=== PATIENT | male | born 1950 | race Hispanic/Latino ===

== ENCOUNTER 2020-03-11 08:37 | Emergency (ER) | payer MEDICARE ==
[~2020-03-11] VITALS: Ht 177.8 cm; Wt 111.1 kg
[~2020-03-11 08:37] MED LIST: BYSTOLIC10 MG PO; DIOVAN HCT 3201 EAC1; DIOVAN PO; FERROUS SULFAT325 MG; FUROSEMIDE PO; HYDROCHLOROTHIA25 MG PO; IRON PO; POTASSIUM PO
[2020-03-11 10:12] LABS: BASOPHILS % 0.9 % (0.0-1.0); EOSINOPHILS # (AUTO) 0.1 (0.0-0.4); EOSINOPHILS % 1.5 % (0.0-6.0); HEMATOCRIT 30.7 % (38.2-49.6); HEMOGLOBIN 10.7 g/dL (14.0-18.0); LYMPHOCYTES # (AUTO) 0.5 (1.0-3.2); LYMPHOCYTES % 11.9 % (18.0-39.1); MEAN CORPUSCULAR HEMOGLOBIN 33.9 pg (28-32); MEAN CORPUSCULAR HGB CONC 34.9 g/dL (31-35); MEAN CORPUSCULAR VOLUME 97.2 fL (81-99); MONOCYTES # (AUTO) 0.4 (0.2-0.8); MONOCYTES % 8.1 % (4.4-11.3); NEUTROPHILS # (AUTO) 3.5 (2.1-6.9); NEUTROPHILS % 77.4 % (38.7-80.0); PLATELET COUNT 154 x10e3/uL (140-360); RED BLOOD COUNT 3.16 x10e6/uL (4.3-5.7); RED CELL DISTRIBUTION WIDTH 13.8 % (11.7-14.4)
[2020-03-11 10:25] LABS: INR 0.91; PROTHROMBIN TIME 12.7 seconds (11.9-14.5)
[2020-03-11 10:26] LABS: PARTIAL THROMBOPLASTIN TIME 29.3 seconds (23.8-35.5)
[2020-03-11 10:53] LABS: ALANINE AMINOTRANSFERASE 37 IU/L (0-55); ALBUMIN 3.3 g/dL (3.5-5.0); ALBUMIN/GLOBULIN RATIO 0.9 (0.8-2.0); ALKALINE PHOSPHATASE 86 IU/L (40-150); ANION GAP 18.5 mmol/L (8-16); BLOOD UREA NITROGEN 16 mg/dL (7-26); BUN/CREATININE RATIO 14 (6-25); CALCIUM 8.2 mg/dL (8.4-10.2); CARBON DIOXIDE 21 mmol/L (22-29); CHLORIDE 91 mmol/L (98-107); CREATINE KINASE 83 IU/L (30-200); CREATININE, SERUM 1.13 mg/dL (0.72-1.25); EST GLOMERULAR FILTRATION RATE > 60 ML/MIN (60-); GLUCOSE 114 mg/dL (74-118); MAGNESIUM 1.5 MG/DL (1.3-2.1); POTASSIUM 4.5 mmol/L (3.5-5.1); SODIUM 126 mmol/L (136-145)
== END 2020-03-11 12:45 | disposition home or self-care (01) ==
LOC: ER 08:58
DX: I89.0 Lymphedema, not elsewhere classified (principal); M79.605 Pain in left leg; M79.604 Pain in right leg; E87.1 Hypo-osmolality and hyponatremia; R94.31 Abnormal electrocardiogram [ECG] [EKG]; I10 Essential (primary) hypertension; I50.9 Heart failure, unspecified
CPT/HCPCS: 36415; 71045; 80053; 82550; 82553; 83735; 83880; 84484; 85025; 85610; 85730; 93005; 99284

== ENCOUNTER 2021-01-04 09:29 | Inpatient (IN) | payer MEDICARE, OTHER ==
[~2021-01-04] VITALS: Ht 177.8 cm; Wt 111.1 kg
[2021-01-04] MEDS ORDERED: HYDROCHLOROTHIA50 MG (09:52)
[2021-01-04] MEDS ORDERED: LOSARTAN POTAS100 MG (09:52)
[2021-01-04 10:13] LABS: BASOPHILS % 0.1 % (0.0-1.0); EOSINOPHILS % 0.3 % (0.0-6.0); HEMATOCRIT 32.4 % (38.2-49.6); HEMOGLOBIN 10.8 g/dL (14.0-18.0); LYMPHOCYTES # (AUTO) 0.6 (1.0-3.2); LYMPHOCYTES % 7.6 % (18.0-39.1); MEAN CORPUSCULAR HEMOGLOBIN 28.3 pg (28-32); MEAN CORPUSCULAR HGB CONC 33.3 g/dL (31-35); MONOCYTES # (AUTO) 0.7 (0.2-0.8); MONOCYTES % 8.7 % (4.4-11.3); NEUTROPHILS # (AUTO) 6.3 (2.1-6.9); NEUTROPHILS % 82.9 % (38.7-80.0); PLATELET COUNT 225 x10e3/uL (140-360); RED BLOOD COUNT 3.81 x10e6/uL (4.3-5.7); RED CELL DISTRIBUTION WIDTH 14.9 % (11.7-14.4)
[2021-01-04 10:24] LABS: INR 1.03; PROTHROMBIN TIME 13.9 seconds (11.9-14.5)
[2021-01-04 10:25] LABS: PARTIAL THROMBOPLASTIN TIME 32.3 seconds (23.8-35.5)
[2021-01-04 10:40] LABS: ALBUMIN 3.2 g/dL (3.5-5.0); ALBUMIN/GLOBULIN RATIO 0.6 (0.8-2.0); ANION GAP 17.2 mmol/L (8-16); CALCIUM 8.4 mg/dL (8.4-10.2); CREATININE, SERUM 0.9 mg/dL (0.72-1.25); POTASSIUM 5.2 mmol/L (3.5-5.1)
[2021-01-04 11:29] LABS: CLARITY,URINE CLEAR (CLEAR); COLOR,URINE YELLOW (YELLOW); KETONES,URINE 2+ (NEGATIVE); LEUKOCYTE ESTERASE ,URINE NEGATIVE (NEGATIVE); NITRITE,URINE NEGATIVE (NEGATIVE); PROTEIN,URINE DIPSTICK NEGATIVE (NEGATIVE); URINE UROBILINOGEN 0.2 mg/dL (0.2 - 1)
[2021-01-04 11:42] LABS: RBC,URINE 0-5 /HPF (0-5); WBC,URINE (MAN) 0-5 /HPF (0-5)
[2021-01-04 11:43] LABS: BACTERIA,URINE RARE /HPF; EPITHELIAL CELLS,URINE RARE /LPF
[2021-01-04] MEDS ORDERED: LORAZEPAM INJ 2 MG/ML VIAL IV PRN (12:45)
[2021-01-04] MEDS ORDERED: MULTIVITAMINS- 12 INJECTION 10 ML, FOLIC ACID MDV 1 MG, THIAMINE HCL INJ 100 MG in SODI... IV ONE (12:45)
[2021-01-04] MEDS: THIAMINE HCL 100 MG TAB PO SCH (13:23)
[2021-01-04 13:27] LABS: BLOOD UREA NITROGEN 11 mg/dL (7-26); GLUCOSE 120 mg/dL (74-118); OSMOLALITY,SERUM 245 mOsm/kg (278-305); SODIUM 121 mmol/L (136-145)
[2021-01-04] MEDS: CHLORDIAZEPOXIDE HCL 25 MG CAP PO SCH ×2 (14:00→16:31)
[2021-01-04 14:55] LABS: ANION GAP 13.2 mmol/L (8-16); CALCIUM 8.2 mg/dL (8.4-10.2); POTASSIUM 4.2 mmol/L (3.5-5.1)
[2021-01-04 15:07] LABS: CREATININE, SERUM 0.82 mg/dL (0.72-1.25)
[2021-01-04 15:50] VITALS: BP 145/101
[2021-01-04 16:00] VITALS: BP 145/101
[2021-01-04] MEDS ORDERED: METOPROLOL SUCC50 MG PO (16:00)
[2021-01-04 20:00] VITALS: BP 138/58
[2021-01-04 20:19] VITALS: BP 138/58
[2021-01-04] MEDS ORDERED: LABETALOL HCL 5 MG/ML 20ML VIAL IV ONE (23:45)
[2021-01-05] VITALS (11 sets, daily range): BP systolic 147–209; BP diastolic 69–99
[2021-01-05] MEDS: LABETALOL HCL 5 MG/ML 20ML VIAL IV PRN ×2 (04:18→06:18)
[2021-01-05] MEDS: CHLORDIAZEPOXIDE HCL 25 MG CAP PO SCH ×3 (05:26→22:00)
[2021-01-05 06:00] LABS: BASOPHILS % 0.4 % (0.0-1.0); EOSINOPHILS % 0.2 % (0.0-6.0); HEMATOCRIT 31.5 % (38.2-49.6); LYMPHOCYTES # (AUTO) 0.8 (1.0-3.2); LYMPHOCYTES % 16.9 % (18.0-39.1); MEAN CORPUSCULAR HEMOGLOBIN 28.5 pg (28-32); MEAN CORPUSCULAR HGB CONC 31.7 g/dL (31-35); MEAN CORPUSCULAR VOLUME 89.7 fL (81-99); MONOCYTES # (AUTO) 0.6 (0.2-0.8); MONOCYTES % 11.9 % (4.4-11.3); NEUTROPHILS # (AUTO) 3.2 (2.1-6.9); NEUTROPHILS % 70.2 % (38.7-80.0); PLATELET COUNT 192 x10e3/uL (140-360); RED BLOOD COUNT 3.51 x10e6/uL (4.3-5.7); RED CELL DISTRIBUTION WIDTH 15.6 % (11.7-14.4)
[2021-01-05 06:40] LABS: ALBUMIN 2.7 g/dL (3.5-5.0); ALBUMIN/GLOBULIN RATIO 0.7 (0.8-2.0); ANION GAP 11.3 mmol/L (8-16); CALCIUM 7.9 mg/dL (8.4-10.2); CREATININE, SERUM 0.92 mg/dL (0.72-1.25); MAGNESIUM 1.8 MG/DL (1.3-2.1); POTASSIUM 4.3 mmol/L (3.5-5.1)
[2021-01-05 07:03] LABS: FERRITIN 584.59 ng/mL (21.81-274.66)
[2021-01-05] MEDS: THIAMINE HCL 100 MG TAB PO SCH (09:00)
[2021-01-05] MEDS: METOPROLOL SUCCINATE 50 MG TAB XL PO SCH (09:00)
[2021-01-05] MEDS: CYANOCOBALAMIN 1,000 MCG TAB PO SCH (09:00)
[2021-01-05] MEDS ORDERED: SODIUM CHLORIDE 0.9% 1000ML 1,000 ML IV PRN (10:30)
[2021-01-05] MEDS ORDERED: SODIUM CHLORIDE 0.9% 1000ML 1,000 ML ONE (10:52)
[2021-01-05] MEDS ORDERED: MAGNESIUM SULFATE 2GM/50ML 50 ML IV ONE (11:00)
[2021-01-05] MEDS: LOSARTAN POTASSIUM 100 MG TAB PO SCH (12:00)
[2021-01-05 12:30] LABS: ANION GAP 10.8 mmol/L (8-16); CALCIUM 7.9 mg/dL (8.4-10.2); CREATININE, SERUM 0.87 mg/dL (0.72-1.25); POTASSIUM 3.8 mmol/L (3.5-5.1)
[2021-01-05] MEDS: MULTIVITAMINS- 12 INJECTION 10 ML, FOLIC ACID MDV 1 MG, THIAMINE HCL INJ 100 MG in SODI... IV SCH (13:24)
[2021-01-05] MEDS: SODIUM CHLORIDE 1 GM TAB PO SCH ×2 (16:00→21:00)
[2021-01-05 21:09] LABS: ANION GAP 11.2 mmol/L (8-16); CALCIUM 7.8 mg/dL (8.4-10.2); CREATININE, SERUM 1.01 mg/dL (0.72-1.25); POTASSIUM 4.2 mmol/L (3.5-5.1)
[2021-01-06] VITALS (8 sets, daily range): BP systolic 139–177; BP diastolic 67–88
[2021-01-06 06:00] LABS: ALBUMIN 2.7 g/dL (3.5-5.0); ALBUMIN/GLOBULIN RATIO 0.6 (0.8-2.0); ANION GAP 13.4 mmol/L (8-16); CALCIUM 8.2 mg/dL (8.4-10.2); CREATININE, SERUM 0.95 mg/dL (0.72-1.25); POTASSIUM 4.4 mmol/L (3.5-5.1)
[2021-01-06] MEDS: CHLORDIAZEPOXIDE HCL 25 MG CAP PO SCH ×2 (06:30→21:00)
[2021-01-06] MEDS: THIAMINE HCL 100 MG TAB PO SCH (09:00)
[2021-01-06] MEDS: LOSARTAN POTASSIUM 100 MG TAB PO SCH (10:00)
[2021-01-06] MEDS: CYANOCOBALAMIN 1,000 MCG TAB PO SCH (10:00)
[2021-01-06] MEDS: METOPROLOL SUCCINATE 50 MG TAB XL PO SCH (10:00)
[2021-01-06] MEDS: SODIUM CHLORIDE 1 GM TAB PO SCH ×3 (10:00→21:00)
[2021-01-06] MEDS ORDERED: HYDRALAZINE HCL 20 MG/ML VIAL IV PRN (12:00)
[2021-01-06 12:37] LABS: ANION GAP 13.8 mmol/L (8-16); CALCIUM 7.9 mg/dL (8.4-10.2); CREATININE, SERUM 0.85 mg/dL (0.72-1.25); POTASSIUM 4.8 mmol/L (3.5-5.1)
[2021-01-06] MEDS: MULTIVITAMINS- 12 INJECTION 10 ML, FOLIC ACID MDV 1 MG, THIAMINE HCL INJ 100 MG in SODI... IV SCH (12:47)
[2021-01-06] MEDS: AMLODIPINE BESYLATE 5 MG TAB PO SCH (13:00)
[2021-01-06] MEDS: ACETAMINOPHEN 325 MG TAB PO PRN (18:30)
[2021-01-07] VITALS (7 sets, daily range): BP systolic 139–183; BP diastolic 72–92
[2021-01-07 05:04] LABS: BASOPHILS % 0.9 % (0.0-1.0); EOSINOPHILS # (AUTO) 0.1 (0.0-0.4); EOSINOPHILS % 2.5 % (0.0-6.0); HEMATOCRIT 29.6 % (38.2-49.6); HEMOGLOBIN 9.5 g/dL (14.0-18.0); LYMPHOCYTES # (AUTO) 0.9 (1.0-3.2); LYMPHOCYTES % 19.6 % (18.0-39.1); MEAN CORPUSCULAR HEMOGLOBIN 28.4 pg (28-32); MEAN CORPUSCULAR HGB CONC 32.1 g/dL (31-35); MEAN CORPUSCULAR VOLUME 88.6 fL (81-99); MONOCYTES # (AUTO) 0.5 (0.2-0.8); MONOCYTES % 12.1 % (4.4-11.3); NEUTROPHILS # (AUTO) 2.8 (2.1-6.9); NEUTROPHILS % 64.4 % (38.7-80.0); PLATELET COUNT 213 x10e3/uL (140-360); RED BLOOD COUNT 3.34 x10e6/uL (4.3-5.7); RED CELL DISTRIBUTION WIDTH 15.8 % (11.7-14.4)
[2021-01-07 06:38] LABS: ALBUMIN 2.4 g/dL (3.5-5.0); ALBUMIN/GLOBULIN RATIO 0.6 (0.8-2.0); ANION GAP 13.3 mmol/L (8-16); CALCIUM 7.6 mg/dL (8.4-10.2); CREATININE, SERUM 0.82 mg/dL (0.72-1.25); MAGNESIUM 1.8 MG/DL (1.3-2.1); PHOSPHORUS 3.5 MG/DL (2.3-4.7); POTASSIUM 4.3 mmol/L (3.5-5.1)
[2021-01-07] MEDS: SODIUM CHLORIDE 1 GM TAB PO SCH ×3 (09:23→21:39)
[2021-01-07] MEDS: LOSARTAN POTASSIUM 100 MG TAB PO SCH (09:27)
[2021-01-07] MEDS: AMLODIPINE BESYLATE 5 MG TAB PO SCH (09:27)
[2021-01-07] MEDS: CHLORDIAZEPOXIDE HCL 25 MG CAP PO SCH ×2 (09:27→21:39)
[2021-01-07] MEDS: AMLODIPINE BESYLATE 10 MG TAB PO SCH (09:28)
[2021-01-07] MEDS: THIAMINE HCL 100 MG TAB PO SCH (09:28)
[2021-01-07] MEDS: CYANOCOBALAMIN 1,000 MCG TAB PO SCH (09:28)
[2021-01-07] MEDS: METOPROLOL SUCCINATE 50 MG TAB XL PO SCH (09:29)
[2021-01-07] MEDS: GUAIFENESIN/DEXTROMETHORPHAN LIQD 5 ML UDC NG PRN ×3 (13:09→22:14)
[2021-01-07] MEDS: MULTIVITAMINS- 12 INJECTION 10 ML, FOLIC ACID MDV 1 MG, THIAMINE HCL INJ 100 MG in SODI... IV SCH (15:17)
[2021-01-07] MEDS: ACETAMINOPHEN 325 MG TAB PO PRN (16:10)
[2021-01-08] VITALS (7 sets, daily range): BP systolic 134–172; BP diastolic 63–93
[2021-01-08 05:56] LABS: ALBUMIN 2.3 g/dL (3.5-5.0); ALBUMIN/GLOBULIN RATIO 0.6 (0.8-2.0); ANION GAP 12.2 mmol/L (8-16); CALCIUM 7.8 mg/dL (8.4-10.2); CREATININE, SERUM 0.79 mg/dL (0.72-1.25); POTASSIUM 4.2 mmol/L (3.5-5.1)
[2021-01-08] MEDS: CHLORDIAZEPOXIDE HCL 25 MG CAP PO SCH ×2 (09:03→21:35)
[2021-01-08] MEDS: LOSARTAN POTASSIUM 100 MG TAB PO SCH (09:03)
[2021-01-08] MEDS: AMLODIPINE BESYLATE 10 MG TAB PO SCH (09:04)
[2021-01-08] MEDS: METOPROLOL SUCCINATE 50 MG TAB XL PO SCH (09:06)
[2021-01-08] MEDS: CYANOCOBALAMIN 1,000 MCG TAB PO SCH (09:06)
[2021-01-08] MEDS: THIAMINE HCL 100 MG TAB PO SCH (09:07)
[2021-01-08] MEDS: SODIUM CHLORIDE 1 GM TAB PO SCH ×3 (09:07→21:35)
[2021-01-08] MEDS: AMLODIPINE BESYLATE 5 MG TAB PO SCH (09:07)
[2021-01-08] MEDS: MULTIVITAMINS- 12 INJECTION 10 ML, FOLIC ACID MDV 1 MG, THIAMINE HCL INJ 100 MG in SODI... IV SCH (11:09)
[2021-01-08] MEDS: GUAIFENESIN/DEXTROMETHORPHAN LIQD 5 ML UDC NG PRN (14:36)
[2021-01-09] VITALS (10 sets, daily range): BP systolic 143–174; BP diastolic 72–90
[2021-01-09 07:04] LABS: ANION GAP 13.3 mmol/L (8-16); CALCIUM 8.1 mg/dL (8.4-10.2); CREATININE, SERUM 0.77 mg/dL (0.72-1.25); POTASSIUM 4.3 mmol/L (3.5-5.1)
[2021-01-09] MEDS: LOSARTAN POTASSIUM 100 MG TAB PO SCH (08:54)
[2021-01-09] MEDS: FUROSEMIDE 20 MG TAB PO SCH (08:55)
[2021-01-09] MEDS: CHLORDIAZEPOXIDE HCL 25 MG CAP PO SCH (08:55)
[2021-01-09] MEDS: SODIUM CHLORIDE 1 GM TAB PO SCH ×3 (08:56→20:30)
[2021-01-09] MEDS: AMLODIPINE BESYLATE 10 MG TAB PO SCH (08:56)
[2021-01-09] MEDS: AMLODIPINE BESYLATE 5 MG TAB PO SCH (08:56)
[2021-01-09] MEDS: THIAMINE HCL 100 MG TAB PO SCH (08:56)
[2021-01-09] MEDS: METOPROLOL SUCCINATE 50 MG TAB XL PO SCH (08:57)
[2021-01-09] MEDS: CYANOCOBALAMIN 1,000 MCG TAB PO SCH (08:57)
[2021-01-09] MEDS: GUAIFENESIN/DEXTROMETHORPHAN LIQD 5 ML UDC NG PRN (10:28)
[2021-01-09] MEDS: FERROUS SULFATE 325 MG TAB PO SCH (10:28)
[2021-01-09] MEDS: POLYETHYLENE GLYCOL 3350 17 GM PACK PO SCH (11:01)
[2021-01-09] MEDS: ACETAMINOPHEN 325 MG TAB PO PRN (22:00)
[2021-01-10] VITALS (7 sets, daily range): BP systolic 137–152; BP diastolic 65–84
[2021-01-10 06:08] LABS: CREATININE, SERUM 0.75 mg/dL (0.72-1.25)
[2021-01-10] MEDS: FERROUS SULFATE 325 MG TAB PO SCH (08:40)
[2021-01-10] MEDS: FUROSEMIDE 20 MG TAB PO SCH (08:40)
[2021-01-10] MEDS: LOSARTAN POTASSIUM 100 MG TAB PO SCH (08:40)
[2021-01-10] MEDS: SODIUM CHLORIDE 1 GM TAB PO SCH ×3 (08:41→20:41)
[2021-01-10] MEDS: METOPROLOL SUCCINATE 50 MG TAB XL PO SCH (08:41)
[2021-01-10] MEDS: AMLODIPINE BESYLATE 10 MG TAB PO SCH (08:41)
[2021-01-10] MEDS: THIAMINE HCL 100 MG TAB PO SCH (08:41)
[2021-01-10] MEDS: AMLODIPINE BESYLATE 5 MG TAB PO SCH (08:41)
[2021-01-10] MEDS: CYANOCOBALAMIN 1,000 MCG TAB PO SCH (08:41)
[2021-01-10] MEDS: POLYETHYLENE GLYCOL 3350 17 GM PACK PO SCH (08:48)
[2021-01-10] MEDS ORDERED: CHLORDIAZEPOXIDE HCL 25 MG CAP PO SCH (09:00)
[2021-01-10] MEDS: ACETAMINOPHEN 325 MG TAB PO PRN ×2 (13:05→22:50)
[2021-01-10] MEDS ORDERED: BISACODYL 10 MG SUPP PR ONE (17:10)
[2021-01-10] MEDS: ESCITALOPRAM OXALATE 10 MG TAB PO SCH (17:18)
[2021-01-11] VITALS: BP 151/74
[2021-01-11 05:21] VITALS: BP 152/71
[2021-01-11 06:05] LABS: CALCIUM 7.9 mg/dL (8.4-10.2); CREATININE, SERUM 0.79 mg/dL (0.72-1.25)
[2021-01-11 07:17] VITALS: BP 158/74
[2021-01-11 07:36] VITALS: BP 158/74
[2021-01-11] MEDS ORDERED: CHLORDIAZEPOXIDE HCL 10 MG CAP PO SCH (09:00)
[2021-01-11] MEDS: LOSARTAN POTASSIUM 100 MG TAB PO SCH (09:07)
[2021-01-11] MEDS: FERROUS SULFATE 325 MG TAB PO SCH (09:07)
[2021-01-11] MEDS: ESCITALOPRAM OXALATE 10 MG TAB PO SCH (09:07)
[2021-01-11] MEDS: FUROSEMIDE 20 MG TAB PO SCH (09:07)
[2021-01-11] MEDS: POLYETHYLENE GLYCOL 3350 17 GM PACK PO SCH (09:08)
[2021-01-11] MEDS: AMLODIPINE BESYLATE 10 MG TAB PO SCH (09:08)
[2021-01-11] MEDS: THIAMINE HCL 100 MG TAB PO SCH (09:08)
[2021-01-11] MEDS: SODIUM CHLORIDE 1 GM TAB PO SCH ×3 (09:08→20:49)
[2021-01-11] MEDS: AMLODIPINE BESYLATE 5 MG TAB PO SCH (09:08)
[2021-01-11] MEDS: METOPROLOL SUCCINATE 50 MG TAB XL PO SCH (09:09)
[2021-01-11] MEDS: CYANOCOBALAMIN 1,000 MCG TAB PO SCH (09:09)
[2021-01-11 11:04] VITALS: BP 129/82
[2021-01-11 15:36] VITALS: BP 146/68
[2021-01-11] MEDS ORDERED: VITAMIN B-121000 MCG PO (17:07)
[2021-01-11] MEDS ORDERED: Ferrous Sulfate PO (17:07)
[2021-01-11] MEDS ORDERED: CHLORDIAZEPOXID10 MG PO (17:07)
[2021-01-11] MEDS ORDERED: NORVASC10 MG PO (17:07)
[2021-01-11] MEDS ORDERED: MIRALAX17 GM PO (17:07)
[2021-01-11] MEDS ORDERED: FUROSEMIDE20 MG PO (17:07)
[2021-01-11] MEDS ORDERED: LEXAPRO10 MG PO (17:07)
[2021-01-11] MEDS ORDERED: HYTRIN1 M1 PO (17:07)
[2021-01-11] MEDS ORDERED: B-1100 MG PO (17:07)
[2021-01-11] MEDS ORDERED: TERAZOSIN HCL 1 MG CAP PO SCH (21:00)
== END 2021-01-11 20:57 | DRG 897 ==
LOC: ER 09:36 → ERHOLD 12:51 → MED/SURG 15:31
PROVIDERS: ADMIT Internal Medicine; ATTEND Internal Medicine
DX: F10.288 Alcohol dependence with other alcohol-induced disorder (principal); E22.2 Syndrome of inappropriate secretion of antidiuretic hormone; I42.6 Alcoholic cardiomyopathy; E87.2 Acidosis; Z91.81 History of falling; I89.0 Lymphedema, not elsewhere classified; E66.9 Obesity, unspecified; Z68.35 Body mass index [BMI] 35.0-35.9, adult; L85.9 Epidermal thickening, unspecified; I87.2 Venous insufficiency (chronic) (peripheral); I11.0 Hypertensive heart disease with heart failure; I50.9 Heart failure, unspecified; Z20.822 Contact with and (suspected) exposure to COVID-19
CPT/HCPCS: 36415; 70450; 71045; 71046; 80048; 80053; 81001; 82607; 82728; 82746; 82947; 82948; 83540; 83735; 83880; 83935; 84100; 84295; 84300; 84466; 84520; 84550; 85025; 85610; 85730; 87040; 93005; 96361; 97139; 99251; 99284; J0360; J2060; J3411; J3475; J7030; U0002

== ENCOUNTER 2021-09-04 11:47 | Inpatient (IN) | payer MEDICARE ==
[~2021-09-04] VITALS: Ht 177.8 cm; Wt 111.1 kg
[~2021-09-04 11:47] MED LIST changes: +B-1100 MG PO; +CHLORDIAZEPOXID10 MG PO; +FUROSEMIDE20 MG PO; +Ferrous Sulfate PO; +HYDROCHLOROTHIA50 MG; +HYTRIN1 M1 PO; +LEXAPRO10 MG PO; +LOSARTAN POTAS100 MG; +METOPROLOL SUCC50 MG PO; +MIRALAX17 GM PO; +NORVASC10 MG PO; +VITAMIN B-121000 MCG PO
[2021-09-04] MEDS ORDERED: Vancomycin IV 1 GM in SODIUM CHLORIDE 0.9% 250ML 250 ML IV ONE (12:30)
[2021-09-04] MEDS ORDERED: SODIUM CHLORIDE 0.9% 500ML 500 ML IV ONE ×2 (12:30→14:15)
[2021-09-04 12:39] LABS: BASOPHILS % 0.6 % (0.0-1.0); EOSINOPHILS % 0.2 % (0.0-6.0); HEMATOCRIT 38.1 % (38.2-49.6); HEMOGLOBIN 13.1 g/dL (14.0-18.0); LYMPHOCYTES # (AUTO) 0.7 (1.0-3.2); LYMPHOCYTES % 10.5 % (18.0-39.1); MEAN CORPUSCULAR HEMOGLOBIN 31.4 pg (28-32); MEAN CORPUSCULAR HGB CONC 34.4 g/dL (31-35); MEAN CORPUSCULAR VOLUME 91.4 fL (81-99); MONOCYTES # (AUTO) 0.3 (0.2-0.8); MONOCYTES % 5.4 % (4.4-11.3); NEUTROPHILS # (AUTO) 5.2 (2.1-6.9); NEUTROPHILS % 82.7 % (38.7-80.0); PLATELET COUNT 195 x10e3/uL (140-360); RED BLOOD COUNT 4.17 x10e6/uL (4.3-5.7); RED CELL DISTRIBUTION WIDTH 13.9 % (11.7-14.4)
[2021-09-04 12:45] LABS: INR 0.93; PARTIAL THROMBOPLASTIN TIME 28.1 seconds (23.8-35.5); PROTHROMBIN TIME 13.3 seconds (11.9-14.5)
[2021-09-04 12:55] LABS: ALANINE AMINOTRANSFERASE 17 IU/L (0-55); ALBUMIN 3.2 g/dL (3.5-5.0); ALBUMIN/GLOBULIN RATIO 0.6 (0.8-2.0); ALKALINE PHOSPHATASE 71 IU/L (40-150); ANION GAP 17.6 mmol/L (8-16); BLOOD UREA NITROGEN 7 mg/dL (7-26); BUN/CREATININE RATIO 7 (6-25); CALCIUM 8.3 mg/dL (8.4-10.2); CARBON DIOXIDE 18 mmol/L (22-29); CHLORIDE 86 mmol/L (98-107); CREATINE KINASE 121 IU/L (30-200); CREATININE, SERUM 1.01 mg/dL (0.72-1.25); GLUCOSE 113 mg/dL (74-118); MAGNESIUM 1.7 MG/DL (1.3-2.1); POTASSIUM 4.6 mmol/L (3.5-5.1)
[2021-09-04 12:56] LABS: SODIUM 117 mmol/L (136-145)
[2021-09-04 13:34] LABS: CLARITY,URINE CLEAR (CLEAR); COLOR,URINE STRAW (YELLOW); KETONES,URINE 1+ (NEGATIVE); LEUKOCYTE ESTERASE ,URINE NEGATIVE (NEGATIVE); NITRITE,URINE NEGATIVE (NEGATIVE); PROTEIN,URINE DIPSTICK NEGATIVE (NEGATIVE); URINE UROBILINOGEN 0.2 mg/dL (0.2 - 1)
[2021-09-04 13:44] LABS: AMORPHOUS SEDIMENT,URINE FEW (FEW); HYALINE CASTS 0-1 (0-1); WBC,URINE (MAN) 0-5 /HPF (0-5)
[2021-09-04] MEDS ORDERED: HYDRALAZINE HCL 20 MG/ML VIAL IV ONE (14:15)
[2021-09-04] MEDS ORDERED: HYDRALAZINE HCL 20 MG/ML VIAL IV PRN (16:00)
[2021-09-04] MEDS ORDERED: ONDANSETRON HCL INJ 2MG/ML 2ML 2 MG/ML VIAL IV PRN (16:00)
[2021-09-04] MEDS ORDERED: METOPROLOL TARTRATE 25 MG TAB PO SCH (16:00)
[2021-09-04] MEDS ORDERED: HYDRALAZINE HCL 20 MG/ML VIAL IV NR (16:00)
[2021-09-04] MEDS: SODIUM CHLORIDE 1 GM TAB PO SCH ×2 (16:31→16:35)
[2021-09-04] MEDS ORDERED: MELATONIN 5 MG TABLET PO PRN (17:30)
[2021-09-04] MEDS ORDERED: ACETAMINOPHEN 325 MG TAB PO PRN (17:30)
[2021-09-04 17:35] LABS: ABG HCO3 19 mmol/L (22-26); ABG PCO2 28 mmHg (35-45); ABG PH 7.44 (7.35-7.45); ABG PO2 99 mmHg (80-105); ABG TCO2 20
[2021-09-04 18:32] VITALS: BP 121/60
[2021-09-04 18:36] LABS: ANION GAP 15.2 mmol/L (8-16); CALCIUM 8.2 mg/dL (8.4-10.2); CREATININE, SERUM 0.98 mg/dL (0.72-1.25); POTASSIUM 4.2 mmol/L (3.5-5.1)
[2021-09-04 18:41] VITALS: BP 121/60
[2021-09-04 19:03] LABS: CREATINE KINASE MB 4.1 ng/mL (0-5.0)
[2021-09-04 19:08] LABS: THYROID STIMULATING HORMONE 6.161 uIU/mL (0.350-4.940)
[2021-09-04 20:00] VITALS: BP 140/68
[2021-09-04] MEDS ORDERED: SODIUM CHLORIDE 0.9% 250ML 250 ML ONE (20:31)
[2021-09-04] MEDS: NIFEDIPINE CR 30 MG TAB PO SCH (20:52)
[2021-09-04] MEDS: LOSARTAN POTASSIUM 25 MG TAB PO SCH (20:52)
[2021-09-04] MEDS: TERAZOSIN HCL 1 MG CAP PO SCH (20:53)
[2021-09-04 23:59] LABS: CREATINE KINASE MB 3.2 ng/mL (0-5.0)
[2021-09-05] VITALS: BP 125/65
[2021-09-05 04:00] VITALS: BP 136/70
[2021-09-05 06:32] LABS: BASOPHILS % 0.4 % (0.0-1.0); HEMATOCRIT 31.4 % (38.2-49.6); HEMOGLOBIN 10.8 g/dL (14.0-18.0); LYMPHOCYTES # (AUTO) 0.7 (1.0-3.2); LYMPHOCYTES % 14.6 % (18.0-39.1); MEAN CORPUSCULAR HGB CONC 34.4 g/dL (31-35); MEAN CORPUSCULAR VOLUME 90.2 fL (81-99); MONOCYTES # (AUTO) 0.4 (0.2-0.8); MONOCYTES % 8.5 % (4.4-11.3); NEUTROPHILS # (AUTO) 3.6 (2.1-6.9); NEUTROPHILS % 76.1 % (38.7-80.0); PLATELET COUNT 164 x10e3/uL (140-360); RED BLOOD COUNT 3.48 x10e6/uL (4.3-5.7)
[2021-09-05 06:52] LABS: ALBUMIN 2.6 g/dL (3.5-5.0); ALBUMIN/GLOBULIN RATIO 0.7 (0.8-2.0); CALCIUM 7.7 mg/dL (8.4-10.2); CREATININE, SERUM 0.85 mg/dL (0.72-1.25)
[2021-09-05 07:06] LABS: CREATINE KINASE MB 2.4 ng/mL (0-5.0)
[2021-09-05 08:22] VITALS: BP 141/71
[2021-09-05] MEDS: THIAMINE HCL 100 MG TAB PO SCH (08:24)
[2021-09-05] MEDS: CYANOCOBALAMIN 1,000 MCG TAB PO SCH (08:24)
[2021-09-05] MEDS: ESCITALOPRAM OXALATE 10 MG TAB PO SCH (08:26)
[2021-09-05] MEDS: CHLORDIAZEPOXIDE HCL 10 MG CAP PO SCH (08:26)
[2021-09-05] MEDS: POLYETHYLENE GLYCOL 3350 17 GM PACK PO SCH (08:26)
[2021-09-05] MEDS: LOSARTAN POTASSIUM 25 MG TAB PO SCH (08:26)
[2021-09-05] MEDS: NIFEDIPINE CR 30 MG TAB PO SCH (08:27)
[2021-09-05] MEDS: METOPROLOL SUCCINATE 50 MG TAB XL PO SCH (08:27)
[2021-09-05 08:39] VITALS: BP 141/71
[2021-09-05] MEDS ORDERED: AMLODIPINE BESYLATE 10 MG TAB PO SCH (09:00)
[2021-09-05 12:00] VITALS: BP 117/64
[2021-09-05 16:06] VITALS: BP 127/60
[2021-09-05] MEDS: SODIUM CHLORIDE 1 GM TAB PO SCH ×2 (17:13→21:23)
[2021-09-05] MEDS: TERAZOSIN HCL 1 MG CAP PO SCH (21:23)
[2021-09-06] VITALS (9 sets, daily range): BP systolic 121–151; BP diastolic 61–70
[2021-09-06 06:57] LABS: ANION GAP 9.8 mmol/L (8-16); CALCIUM 7.9 mg/dL (8.4-10.2); CREATININE, SERUM 0.82 mg/dL (0.72-1.25); POTASSIUM 3.8 mmol/L (3.5-5.1)
[2021-09-06] MEDS: BALSAM PERU/CASTOR OIL 60 GM OINT...G. TP SCH (09:00)
[2021-09-06] MEDS: POLYETHYLENE GLYCOL 3350 17 GM PACK PO SCH (09:00)
[2021-09-06] MEDS: CYANOCOBALAMIN 1,000 MCG TAB PO SCH (09:46)
[2021-09-06] MEDS: NIFEDIPINE CR 30 MG TAB PO SCH (09:46)
[2021-09-06] MEDS: THIAMINE HCL 100 MG TAB PO SCH (09:47)
[2021-09-06] MEDS: LOSARTAN POTASSIUM 25 MG TAB PO SCH (09:47)
[2021-09-06] MEDS: METOPROLOL SUCCINATE 50 MG TAB XL PO SCH (09:47)
[2021-09-06] MEDS: CHLORDIAZEPOXIDE HCL 10 MG CAP PO SCH (09:47)
[2021-09-06] MEDS: ESCITALOPRAM OXALATE 10 MG TAB PO SCH (09:47)
[2021-09-06] MEDS: SODIUM CHLORIDE 1 GM TAB PO SCH ×3 (09:52→20:44)
[2021-09-06 16:10] LABS: OSMOLALITY,SERUM OSMOMETER 257 mOsmol/kg (280-301)
[2021-09-06] MEDS: SODIUM HYPOCHLORITE 0.5% 480 ML BTL TOP SCH (18:27)
[2021-09-06] MEDS: TERAZOSIN HCL 1 MG CAP PO SCH (20:44)
[2021-09-07] VITALS (8 sets, daily range): BP systolic 140–168; BP diastolic 66–82
[2021-09-07] MEDS: LEVOTHYROXINE SODIUM 25 MCG TABLET PO SCH (05:38)
[2021-09-07 07:27] LABS: CREATININE, SERUM 0.91 mg/dL (0.72-1.25)
[2021-09-07] MEDS: POLYETHYLENE GLYCOL 3350 17 GM PACK PO SCH (09:15)
[2021-09-07] MEDS: NIFEDIPINE CR 30 MG TAB PO SCH (09:16)
[2021-09-07] MEDS: CYANOCOBALAMIN 1,000 MCG TAB PO SCH (09:16)
[2021-09-07] MEDS: THIAMINE HCL 100 MG TAB PO SCH (09:16)
[2021-09-07] MEDS: METOPROLOL SUCCINATE 50 MG TAB XL PO SCH (09:17)
[2021-09-07] MEDS: LOSARTAN POTASSIUM 25 MG TAB PO SCH (09:17)
[2021-09-07] MEDS: ESCITALOPRAM OXALATE 10 MG TAB PO SCH (09:18)
[2021-09-07] MEDS: CHLORDIAZEPOXIDE HCL 10 MG CAP PO SCH (09:18)
[2021-09-07] MEDS: SODIUM CHLORIDE 1 GM TAB PO SCH ×3 (09:18→20:57)
[2021-09-07] MEDS: SODIUM HYPOCHLORITE 0.5% 480 ML BTL TOP SCH (09:21)
[2021-09-07] MEDS: BALSAM PERU/CASTOR OIL 60 GM OINT...G. TP SCH (09:21)
[2021-09-07] MEDS: TERAZOSIN HCL 1 MG CAP PO SCH (20:56)
[2021-09-08] VITALS: BP 123/50
[2021-09-08 04:00] VITALS: BP 154/78
[2021-09-08] MEDS: LEVOTHYROXINE SODIUM 25 MCG TABLET PO SCH (05:37)
[2021-09-08 07:23] LABS: ANION GAP 12.1 mmol/L (8-16); CALCIUM 7.8 mg/dL (8.4-10.2); CREATININE, SERUM 0.86 mg/dL (0.72-1.25); POTASSIUM 4.1 mmol/L (3.5-5.1)
[2021-09-08 08:15] VITALS: BP 166/71
[2021-09-08] MEDS: ESCITALOPRAM OXALATE 10 MG TAB PO SCH (08:51)
[2021-09-08] MEDS: LOSARTAN POTASSIUM 25 MG TAB PO SCH (08:52)
[2021-09-08] MEDS: POLYETHYLENE GLYCOL 3350 17 GM PACK PO SCH (08:54)
[2021-09-08] MEDS: NIFEDIPINE CR 30 MG TAB PO SCH (08:55)
[2021-09-08] MEDS: CYANOCOBALAMIN 1,000 MCG TAB PO SCH (08:57)
[2021-09-08] MEDS: METOPROLOL SUCCINATE 50 MG TAB XL PO SCH (08:59)
[2021-09-08] MEDS: SODIUM CHLORIDE 1 GM TAB PO SCH (09:00)
[2021-09-08] MEDS: CHLORDIAZEPOXIDE HCL 10 MG CAP PO SCH (09:01)
[2021-09-08] MEDS: THIAMINE HCL 100 MG TAB PO SCH (09:04)
[2021-09-08 09:14] VITALS: BP 166/71
[2021-09-08 12:16] VITALS: BP 166/71
== END 2021-09-08 12:02 | DRG 593 ==
LOC: ER 12:06 → ERHOLD 15:55 → MED/SURG2 17:50
DX: L97.211 Non-pressure chronic ulcer of right calf limited to breakdown of skin (principal); E87.1 Hypo-osmolality and hyponatremia; L03.116 Cellulitis of left lower limb; E87.2 Acidosis; E87.3 Alkalosis; L03.115 Cellulitis of right lower limb; I89.0 Lymphedema, not elsewhere classified; F10.20 Alcohol dependence, uncomplicated; D23.72 Other benign neoplasm of skin of left lower limb, including hip; D23.71 Other benign neoplasm of skin of right lower limb, including hip; Z68.35 Body mass index [BMI] 35.0-35.9, adult; E66.01 Morbid (severe) obesity due to excess calories; R94.6 Abnormal results of thyroid function studies; D63.8 Anemia in other chronic diseases classified elsewhere; Z20.822 Contact with and (suspected) exposure to COVID-19
CPT/HCPCS: 36415; 36600; 70450; 71045; 72125; 80048; 80053; 80320; 81001; 82550; 82553; 82805; 83735; 83880; 83930; 83935; 84295; 84443; 84484; 85025; 85610; 85730; 87040; 87086; 93005; 94799; 99251; 99284; J0360; J0690; J2543; J3370; J3411; J7040; J7050